=== PATIENT | female | born 1995 | race African-American/Black ===

== ENCOUNTER 2018-01-17 08:56 | Emergency (ER) | payer BC, SELFPAY ==
[2018-01-17 08:57] VITALS: BP 139/87; PULSE 84; RESP 16; TEMP 36.3; O2SAT 97; BMI 30.4
--- NOTE | 2018-01-17 10:03 | ED.VISSUMM ---
- ER Visit Summary Date of Service: 01/17/18 Chief Complaint: Abscess upper lip History of Present Illness: The patient is a 22 F who presents because her upper lip is more painful and swollen since seen by practitioner at the [facility]. She was prescribed Augmentin 875 mg twice daily. Patient states she first noted swelling and small lesion 1-1/2 weeks ago. The eschar was noted last January 10. She was seen January 12 at the [facility]. She denies fever, chills or night sweats. She has attempted to express fluid from the wound. She is not on any immunosuppressive meds and has no reason to be immune suppressed. There is no history of rheumatic fever, murmur, mitral valve prolapse. She reports allergy to shellfish. She reports no allergy to any antibiotics. Physical Examination: There is an eschar vermilion surface midline upper lip with soft tissue swelling and fluctuance. Palpation resulted in purulent fluid oozing from the edge of the eschar. There is no abnormality of the gingiva or teeth. There is no evidence of facial cellulitis. There is no malocclusion. There is no trismus. Pupils are equal round reactive. Extraocular muscles are intact. Heart is regular without murmur, gallop or rub. S1 and S2 are normal. Lungs are clear to auscultation with good movement of air bilaterally. Test Results: None Emergency Department Course and Treatment: Patient was informed the treatment of an abscess is incision and drainage. Her mother who is a nurse practitioner at [facility] was informed of my plan. She requested that a culture be obtained. I informed her reasons why a culture was not obtained. She understood. Area was anesthetized with 3 cc of 1% lidocaine. An incision was made buccal side of the upper lip. Blunt dissection was undertaken with minimal amount of purulent material. There appears to be multiple pustules at the periphery of the eschar. This would suggest a MRSA infection. Therefore will treat with Bactrim since Augmentin has no MRSA coverage. Treatment Plan: Bactrim DS tab 1 twice daily ?5 days Disposition: Discharge to home in stable improved condition with wound check in 2 days at the [facility] Impression: Abscess upper lip This note was generated with [employer] dictation software. It may contain incorrect words, spelling, and punctuation that were not noted in review of the chart prior to signing ED Disposition - Plan for ED Patient: Disposition: Home or Assisted Living Chief Complaint: Abscess Instructions: ED Abscess IandD, ED Skin Infec MRSA Suspect Conf Prescriptions: Smz/Tmp Ds [Bactrim Ds] 1 tab PO BID #14 tab Referrals: Care Physician,No Primary [Primary Care Provider] - [place],[facility] [GROUP OF PHYSICIANS] - 2 Days for wound check Additional Instructions: Discontinue taking Augmentin. Fill prescription for Bactrim and take until gone.
--- NOTE | 2018-01-17 10:09 | ED.DCSUM_ITS ---
- ER Visit Summary Date of Service: 01/17/18 Chief Complaint: Abscess upper lip History of Present Illness: The patient is a 22 F who presents because her upper lip is more painful and swollen since seen by practitioner at the [facility]. She was prescribed Augmentin 875 mg twice daily. Patient states she first noted swelling and small lesion 1-1/2 weeks ago. The eschar was noted last January 10. She was seen January [address] [facility]. She denies fever, chills or night sweats. She has attempted to express fluid from the wound. She is not on any immunosuppressive meds and has no reason to be immune suppressed. There is no history of rheumatic fever, murmur, mitral valve prolapse. She reports allergy to shellfish. She reports no allergy to any antibiotics. Physical Examination: There is an eschar vermilion surface midline upper lip with soft tissue swelling and fluctuance. Palpation resulted in purulent fluid oozing from the edge of the eschar. There is no abnormality of the gingiva or teeth. There is no evidence of facial cellulitis. There is no malocclusion. There is no trismus. Pupils are equal round reactive. Extraocular muscles are intact. Heart is regular without murmur, gallop or rub. S1 and S2 are normal. Lungs are clear to auscultation with good movement of air bilaterally. Test Results: None Emergency Department Course and Treatment: Patient was informed the treatment of an abscess is incision and drainage. Her mother who is a nurse practitioner at [facility] was informed of my plan. She requested that a culture be obtained. I informed her reasons why a culture was not obtained. She understood. Area was anesthetized with 3 cc of 1% lidocaine. An incision was made buccal side of the upper lip. Blunt dissection was undertaken with minimal amount of purulent material. There appears to be multiple pustules at the periphery of the eschar. This would suggest a MRSA infection. Therefore will treat with Bactrim since Augmentin has no MRSA coverage. Treatment Plan: Bactrim DS tab 1 twice daily ?5 days Disposition: Discharge to home in stable improved condition with wound check in 2 days at the [facility] Impression: Abscess upper lip This note was generated with [employer] dictation software. It may contain incorrect words, spelling, and punctuation that were not noted in review of the chart prior to signing ED Disposition - Plan for ED Patient: Disposition: Home or Assisted Living Chief Complaint: Abscess Instructions: ED Abscess IandD, ED Skin Infec MRSA Suspect Conf Prescriptions: Smz/Tmp Ds [Bactrim Ds] 1 tab PO BID #14 tab Referrals: Care Physician,No Primary [Primary Care Provider] - [place],[facility] [GROUP OF PHYSICIANS] - 2 Days for wound check Additional Instructions: Discontinue taking Augmentin. Fill prescription for Bactrim and take until gone.
[2018-01-17] MEDS: Smz/Tmp Ds Tablet 1 TABLET PO (10:25)
== END 2018-01-17 10:30 | disposition home or self-care (01) ==
PROVIDERS: Emergency Provider Emergency Medicine
DX: K13.0 Diseases of lips (principal)
CPT/HCPCS: 10060; 99283

== ENCOUNTER 2018-01-19 12:24 | Emergency (ER) | payer BC, SELFPAY ==
[2018-01-19 12:25] VITALS: BP 126/74; PULSE 77; RESP 16; TEMP 36.7; O2SAT 98; BMI 31.0
--- NOTE | 2018-01-19 13:05 | ED.VISSUMM ---
- ER Visit Summary Date of Service: 01/19/18 Chief Complaint: Lip abscess History of Present Illness: The patient is a 22 F who presents with an abscess to her upper lip that has been constant for the past 2 weeks. Patient went to the wellness center at the [facility] and was prescribed Augmentin initially. Patient was then seen here 2 days ago and had an incision and drainage. Patient was switched to Bactrim at that time. Patient states she has been having continued drainage from the area. Patient denies any fevers or chills. Patient denies any difficulty swallowing. Patient denies any chest pain or shortness of breath. Physical Examination: Vital signs are stable. Patient is afebrile. Patient is in no acute distress. Oral mucosa is pink and moist. Oropharynx is clear. Airway is patent. There is some tenderness and edema over the upper lip near the midline. There is no fluctuance. There is no active drainage. Neck is supple. Trachea is midline. There is no JVD or lymphadenopathy. Heart was regular rate and rhythm. Lungs are clear and equal bilaterally. Cranial nerves II through XII are intact. There are no focal motor or sensory deficits noted. Emergency Department Course and Treatment: Patient was given a prescription for Keflex to take in addition to the Bactrim. Patient was instructed to continue using warm compresses. Patient was instructed to follow-up with her primary care physician or the wellness center at the [facility]. Patient understood and was agreeable with the plan. All questions were answered. Disposition: Discharge home Impression: Upper lip abscess This note was generated with [employer] dictation software. It may contain incorrect words, spelling, and punctuation that were not noted in review of the chart prior to signing ED Disposition - Plan for ED Patient: Disposition: Home or Assisted Living Chief Complaint: Abscess Diagnosis: Lip abscess Instructions: ED Abscess IandD, ED Skin Infec MRSA Suspect Conf Prescriptions: Cephalexin [Keflex] 500 mg PO TID #15 cap Referrals: Care Physician,No Primary [Primary Care Provider] -
--- NOTE | 2018-01-19 13:10 | ED.DCSUM_ITS ---
- ER Visit Summary Date of Service: 01/19/18 Chief Complaint: Lip abscess History of Present Illness: The patient is a 22 F who presents with an abscess to her upper lip that has been constant for the past 2 weeks. Patient went to the wellness center at the [facility] and was prescribed Augmentin initially. Patient was then seen here 2 days ago and had an incision and drainage. Patient was switched to Bactrim at that time. Patient states she has been having continued drainage from the area. Patient denies any fevers or chills. Patient denies any difficulty swallowing. Patient denies any chest pain or shortness of breath. Physical Examination: Vital signs are stable. Patient is afebrile. Patient is in no acute distress. Oral mucosa is pink and moist. Oropharynx is clear. Airway is patent. There is some tenderness and edema over the upper lip near the midline. There is no fluctuance. There is no active drainage. Neck is supple. Trachea is midline. There is no JVD or lymphadenopathy. Heart was regular rate and rhythm. Lungs are clear and equal bilaterally. Cranial nerves II through XII are intact. There are no focal motor or sensory deficits noted. Emergency Department Course and Treatment: Patient was given a prescription for Keflex to take in addition to the Bactrim. Patient was instructed to continue using warm compresses. Patient was instructed to follow-up with her primary care physician or the wellness center at the [facility]. Patient understood and was agreeable with the plan. All questions were answered. Disposition: Discharge home Impression: Upper lip abscess This note was generated with [employer] dictation software. It may contain incorrect words, spelling, and punctuation that were not noted in review of the chart prior to signing ED Disposition - Plan for ED Patient: Disposition: Home or Assisted Living Chief Complaint: Abscess Diagnosis: Lip abscess Instructions: ED Abscess IandD, ED Skin Infec MRSA Suspect Conf Prescriptions: Cephalexin [Keflex] 500 mg PO TID #15 cap Referrals: Care Physician,No Primary [Primary Care Provider] -
[2018-01-19 13:30] VITALS: BP 132/80; PULSE 72; RESP 18; O2SAT 100
== END 2018-01-19 13:45 | disposition home or self-care (01) ==
PROVIDERS: Emergency Provider Emergency Medicine; Family Provider Family Medicine; PCP Family Medicine
DX: K13.0 Diseases of lips (principal)
CPT/HCPCS: 99282